=== PATIENT | female | born 1940 | race Caucasian/White ===

== ENCOUNTER → 2017-08-08 | Outpatient (CLI) | payer MEDICARE, OTHER ==
--- NOTE | 2017-08-08 10:53 | WOMENS IMAGING REPORT ---
EXAM DESCRIPTION: BONE DENSITY HIP/SPINE COMPLETED DATE/TIME: 08/08/2017 10:10 am REASON FOR STUDY: OSTEOPROSIS; M81.0 M81.0 AGE-RELATED OSTEOPOROSIS W/O CURRENT PATHOLOGICAL FRAC COMPARISON: 02/12/2013 02/11/2012 10/26/2008 TECHNIQUE: Dual-Energy X-ray Absorptiometry (DEXA) of the AP Spine and Hip. LIMITATIONS: None. FINDINGS: LUMBAR SPINE: The bone mineral density (BMD) measured from L1-L4 in the AP projection correlates with a T-score of -1.6, which is osteopenia as defined by the World Health Organization. HIP: The bone mineral density (BMD) measured in the left hip correlates with a T-score of -1.8 in the femo ral neck, which is osteopenia as defined by the World Health Organization. IMPRESSION: 1. LUMBAR SPINE: Osteopenia 2. HIP: Osteopenia COMMENT: The World Health Organization defines low BMD as follows: T-score: Normal: Greater than -1.0 Osteopenia: Between -1.0 and -2.5 Osteoporosis: Less than -2.5 without fractures Established osteoporosis: Less than -2.5 with fractures In general, you may wish to consider: Diagnosis Treatment Follow-up DEXA Normal BMD Prevention 2-3 years Osteopenia Prevention/Therapy 1-2 years Osteoporosis Therapy Yearly TECHNICAL DOCUMENTATION: JOB ID: [id number]- All Rights Reserved
== END ==
LOC: WI 08:42
PROVIDERS: ATTEND Family Medicine
DX: M81.0 Age-related osteoporosis without current pathological fracture (principal)
CPT/HCPCS: 77080

== ENCOUNTER 2020-10-09 20:58 | Emergency (ER) | payer MEDICARE, OTHER ==
--- NOTE | 2020-10-09 21:30 | ER Document Report ---
ED Medical Screen (RME) - General Chief Complaint: Fall Stated Complaint: FALL-RIGHT WRIST PAIN Time Seen by Provider: 10/09/20 21:27 Primary Care Provider: DEE DEE GARCIA MD [Primary Care Provider] - Follow up as needed Mode of Arrival: Wheelchair Information source: Relative Notes: HPI; 80-year-old female past medical history significant for the dementia presents to the emergency room with her bagknpzr-if-qum and who states she tripped and fell landing on her right forearm. No head trauma head injury. No medications prior to arrival. Patient offers no complaints. PE: Alert oriented to name only. Obvious deformity noted to the right wrist and right forearm. She has a positive right radial pulse. Capillary refill is less than 3 seconds. Lungs: Clear to auscultation without rales, rhonchi, wheezes. Heart: Regular rate rhythm without murmurs, rubs, gallops. I have greeted and performed a rapid initial assessment of this patient. A comprehensive ED assessment and evaluation of the patient, analysis of test results and completion of the medical decision making process will be conducted by additional ED providers. I have specifically instructed the patient or family members with the patient to immediately return to any nursing staff should anything change in the patient's condition or with their chief complaint. TRAVEL OUTSIDE OF THE [place] IN LAST 30 DAYS: No - Related Data Allergies/Adverse Reactions: procainamide HCl [From Procanbid] Allergy (Severe, Verified 07/03/11 07:53) muscle rigidity amoxicillin trihydrate [From Augmentin] Adverse Reaction (Mild, Verified 07/03/11 07:54) rash lecithin [Lecithin] Adverse Reaction (Mild, Verified 07/03/11 07:55) yeast infection Penicillins Adverse Reaction (Mild, Verified 07/03/11 07:55) rash Potassium Clavulanate * [From Augmentin] Adverse Reaction (Mild, Verified 07/03/11 07:54) rash tetracycline [Tetracycline] Adverse Reaction (Mild, Verified 07/03/11 07:54) rash jigna peg Adverse Reaction (Mild, Uncoded 07/03/11 07:54) rash Past Medical History - Past Medical History Cardiac Medical History: Reports: Hx Hypertension - on meds Denies: Hx Coronary Artery Disease, Hx Heart Attack Pulmonary Medical History: Denies: Hx Asthma, Hx Bronchitis, Hx COPD, Hx Pneumonia Neurological Medical History: Denies: Hx Cerebrovascular Accident, Hx Seizures Musculoskeltal Medical History: Denies Hx Arthritis Past Surgical History: Reports: Hx Hysterectomy, Hx Pacemaker - see card copy 2001 - Immunizations Hx Diphtheria, Pertussis, Tetanus Vaccination: Yes Doctor's Discharge - Discharge Referrals: DEE DEE GARCIA MD [Primary Care Provider] - Follow up as needed
--- NOTE | 2020-10-09 22:21 | RADIOLOGY REPORT (SQ) ---
XR FOREARM 2 VIEWS CLINICAL STATEMENT: injury COMPARISON: None FINDINGS: Mildly impacted and comminuted distal radius metaphysis fracture. Mildly impacted distal ulna fracture. Bones are osteopenic. No dislocation. Mild radiocarpal degenerative changes. IMPRESSION: Mildly impacted distal radius and ulna fractures.
--- NOTE | 2020-10-09 22:22 | RADIOLOGY REPORT (SQ) ---
XR WRIST 3 OR MORE VIEWS CLINICAL STATEMENT: injury COMPARISON: None FINDINGS: Distal radius and ulna impacted fractures. No dislocation. Moderate diffuse soft tissue swelling. The carpal bones are otherwise intact. IMPRESSION: Comminuted distal radius minimally impacted distal ulna fracture.
--- NOTE | 2020-10-10 00:55 | ER Document Report ---
ED General - General Chief Complaint: Fall Injury Stated Complaint: FALL-RIGHT WRIST PAIN Time Seen by Provider: 10/09/20 21:27 Primary Care Provider: DEE DEE GARCIA MD [NO LOCAL MD] - Follow up as needed LUZ JEFFERSON JR, DO [ACTIVE PROVISIONAL STAFF] - Follow up as needed Mode of Arrival: Wheelchair TRAVEL OUTSIDE OF THE [place] IN LAST 30 DAYS: No - HPI Notes: Patient is a very pleasant 80-year-old female with a history of dementia who presents to the emergency department for evaluation after a fall. Patient's nblviekw-gd-wnd, who is also one of her caregivers, is primary historian. Evidently she was at home with her . They bumped into each other, she tripped over her slippers, and fell onto her right side. She was initially complaining of pain only in her right wrist, but she did complain of some pain in her right hip. She has been ambulatory, been able to bear weight since then. She did not hit her head. She did not lose consciousness. There is no neck or back pain. - Related Data Allergies/Adverse Reactions: procainamide HCl [From Procanbid] Allergy (Severe, Verified 07/03/11 07:53) muscle rigidity amoxicillin trihydrate [From Augmentin] Adverse Reaction (Mild, Verified 07/03/11 07:54) rash lecithin [Lecithin] Adverse Reaction (Mild, Verified 07/03/11 07:55) yeast infection Penicillins Adverse Reaction (Mild, Verified 07/03/11 07:55) rash Potassium Clavulanate * [From Augmentin] Adverse Reaction (Mild, Verified 07/03/11 07:54) rash tetracycline [Tetracycline] Adverse Reaction (Mild, Verified 07/03/11 07:54) rash jigna peg Adverse Reaction (Mild, Uncoded 07/03/11 07:54) rash Home Medications: Tikosyn, Namenda, calcium and vitamin D, multivitamin, lisinopril, Xarelto, Celexa, Keflex Past Medical History - General Information source: Relative - Social History Smoking Status: Unknown if Ever Smoked Family History: Reviewed & Not Pertinent Patient has homicidal ideation: No - Past Medical History Cardiac Medical History: Reports: Hx Atrial Fibrillation, Hx Hypertension - on meds Denies: Hx Coronary Artery Disease, Hx Heart Attack Pulmonary Medical History: Denies: Hx Asthma, Hx Bronchitis, Hx COPD, Hx Pneumonia Neurological Medical History: Denies: Hx Cerebrovascular Accident, Hx Seizures Musculoskeletal Medical History: Denies Hx Arthritis Past Surgical History: Reports: Hx Hysterectomy, Hx Pacemaker - see card copy 2001 - Immunizations Hx Diphtheria, Pertussis, Tetanus Vaccination: Yes Hx Pneumococcal Vaccination: 09/03/10 Review of Systems - Review of Systems Constitutional: No symptoms reported EENT: No symptoms reported Cardiovascular: No symptoms reported Respiratory: No symptoms reported Gastrointestinal: No symptoms reported Genitourinary: No symptoms reported Musculoskeletal: See HPI Skin: No symptoms reported Neurological/Psychological: No symptoms reported Physical Exam - Vital signs Vitals: Temp Pulse Resp BP Pulse Ox 99.2 F 70 18 145/59 H 98 10/09/20 21:26 10/09/20 21:26 10/09/20 21:26 10/09/20 21:26 10/09/20 21:26 - Notes Notes: Is a very pleasant 80-year-old female, who appears her stated age, no acute distress. Vital signs reviewed, please refer to chart. Head is normocephalic, atraumatic. Pupils equal round, reactive to light. Neck is supple without meningismus. Heart is regular rate and rhythm. Lungs are clear to auscultation bilaterally. Abdomen is soft, nontender, normoactive bowel sounds throughout. Extremities without cyanosis, clubbing. Posterior calves are nontender. Peripheral pulses are equal. Skin is warm and dry. Examination of the right upper extremity yields edema and ecchymosis to the distal forearm. She has full range of motion of the shoulder, elbow, fingers, thumb. Radial pulse 2+, sensation intact, capillary refill is brisk. She is tender over the distal radius and distal ulna. No anatomical snuffbox tenderness noted. Examination of the right lower extremity yields no obvious deformity. No shortening. She is no pain with passive flexion, abduction, abduction, and internal and external rotation of the hip. Neurovascularly intact distally. Patient is awake and alert, pleasantly confused, cooperative with examiner. Course - Re-evaluation Re-evalutation: 10/10/20 00:58 Patient presents emergency department for evaluation. She had imaging is ordered through triage. She does not seem to be in any way uncomfortable. She is on Xarelto so anti-inflammatories are inappropriate. Caregiver is told to administer Tylenol if necessary for pain. Otherwise we will place this broken wrist in a sugar tong splint. We will refer her to orthopedist. Per caregiver the patient has seen an orthopedic surgeon in the past, but she is unsure as to who it was. I will go and give her the name of our on-call surgeon, they are free to follow-up with whomever they like this week. We did talk about the fact that this was a comminuted fracture, and repair may be significantly complex, if pursued. 10/10/20 01:11 Patient neurovascularly intact following splint placement. She will be discharged. - Vital Signs Vital signs: Temp Pulse Resp BP Pulse Ox 99.2 F 70 18 145/59 H 98 10/09/20 21:26 10/09/20 21:26 10/09/20 21:26 10/09/20 21:26 10/09/20 21:26 - Diagnostic Test Radiology reviewed: Image reviewed, Reports reviewed Radiology results interpreted by me: 10/10/20 01:00 Forearm X-Ray 10/09/20 21:30 IMPRESSION: Mildly impacted distal radius and ulna fractures. Wrist X-Ray 10/09/20 21:30 IMPRESSION: Comminuted distal radius minimally impacted distal ulna fracture. Discharge - Discharge Clinical Impression: Closed fracture distal radius and ulna Qualifiers: Encounter type: initial encounter Laterality: right Qualified Code(s): S52.501A - Unspecified fracture of the lower end of right radius, initial encounter for closed fracture Condition: Stable Disposition: HOME, SELF-CARE Instructions: Fractured Radius and Ulna ([facility]) Additional Instructions: Maintain splint, keep it dry. Tylenol as needed for pain. Follow-up with orthopedic surgeon. He can follow-up with someone using prior, or our orthopedic surgeon on-call, listed below. Return the emergency department if she develops worsening or new concerning symptoms of any sort. Referrals: DEE DEE GARCIA MD [NO LOCAL MD] - Follow up as needed LUZ JEFFERSON JR, [ACTIVE PROVISIONAL STAFF] - Follow up as needed
[2020-10-10 01:15] VITALS: BP 162/69
== END 2020-10-10 01:32 | disposition home or self-care (01) ==
LOC: ER 20:58
DX: S52.591A Other fractures of lower end of right radius, initial encounter for closed fracture (principal); S52.691A Other fracture of lower end of right ulna, initial encounter for closed fracture; M25.551 Pain in right hip; W03.XXXA Other fall on same level due to collision with another person, initial encounter; Y92.009 Unspecified place in unspecified non-institutional (private) residence as the place of occurrence of the external cause; F03.90 Unspecified dementia, unspecified severity, without behavioral disturbance, psychotic disturbance, mood disturbance, and anxiety; I48.91 Unspecified atrial fibrillation; I10 Essential (primary) hypertension; Z95.0 Presence of cardiac pacemaker; Z79.899 Other long term (current) drug therapy; Z79.01 Long term (current) use of anticoagulants; Z79.2 Long term (current) use of antibiotics; Z88.8 Allergy status to other drugs, medicaments and biological substances
CPT/HCPCS: 99283

== ENCOUNTER 2020-10-24 15:29 | Emergency (ER) | payer MEDICARE, OTHER ==
[2020-10-24] MEDS ORDERED: NORMAL SALINE 1000 ML 1,000 ML IV ONE (15:49)
--- NOTE | 2020-10-24 15:49 | ER Document Report ---
ED Medical Screen (RME) - General Chief Complaint: Urinary Problem Stated Complaint: URINARY ISSUE Time Seen by Provider: 10/24/20 15:43 Primary Care Provider: JOE MTZ [Primary Care Provider] - Follow up as needed Mode of Arrival: Ambulatory Information source: Patient Notes: 80-year-old female presents to ED for urinary problems. Her urine is brown in color. She was seen by the primary care on Saturday started on Macrobid for UTI. She returned to the primary care today the primary care sent her to the emergency room due to the brown urine. Patient does not complain of pain. Patient does have dementia. She is more confused than her normal. She is here with her sshgxazm-hv-afv caregiver. Objective: There is no blood in urine because I have greeted and performed a rapid initial assessment of this patient. A comprehensive ED assessment and evaluation of the patient, analysis of test results and completion of medical decision making process will be conducted by an additional ED providers. TRAVEL OUTSIDE OF THE [place] IN LAST 30 DAYS: No - Related Data Allergies/Adverse Reactions: procainamide HCl [From Procanbid] Allergy (Severe, Verified 07/03/11 07:53) muscle rigidity amoxicillin trihydrate [From Augmentin] Adverse Reaction (Mild, Verified 07/03/11 07:54) rash lecithin [Lecithin] Adverse Reaction (Mild, Verified 07/03/11 07:55) yeast infection Penicillins Adverse Reaction (Mild, Verified 07/03/11 07:55) rash Potassium Clavulanate * [From Augmentin] Adverse Reaction (Mild, Verified 07/03/11 07:54) rash tetracycline [Tetracycline] Adverse Reaction (Mild, Verified 07/03/11 07:54) rash jigna peg Adverse Reaction (Mild, Uncoded 07/03/11 07:54) rash Past Medical History - Past Medical History Cardiac Medical History: Reports: Hx Atrial Fibrillation, Hx Hypertension - on meds Denies: Hx Coronary Artery Disease, Hx Heart Attack Pulmonary Medical History: Denies: Hx Asthma, Hx Bronchitis, Hx COPD, Hx Pneumonia Neurological Medical History: Denies: Hx Cerebrovascular Accident, Hx Seizures Musculoskeltal Medical History: Denies Hx Arthritis Past Surgical History: Reports: Hx Hysterectomy, Hx Pacemaker - see card copy 2001 - Immunizations Hx Diphtheria, Pertussis, Tetanus Vaccination: Yes Doctor's Discharge - Discharge Referrals: JOE MTZ [Primary Care Provider] - Follow up as needed
[2020-10-24 16:44] LABS: ABSOLUTE BASOPHILS # (AUTO) 0.1 10^3/uL (0.0-0.2); ABSOLUTE EOSINOPHILS # (AUTO) 0.6 10^3/uL (0.0-0.6); ABSOLUTE LYMPHOCYTES (AUTO) 0.9 10^3/uL (0.5-4.7); ABSOLUTE NEUT (AUTO) 6.3 10^3/uL (1.7-8.2); BASOPHILS % (AUTO) 0.8 % (0-2); EOSINOPHILS % (AUTO) 6.3 % (0-6); HEMATOCRIT 36.8 % (36.0-47.0); HEMOGLOBIN 12.5 g/dL (12.0-15.5); MEAN CORPUSCULAR HEMOGLOBIN 31.3 pg (27.0-33.4); MEAN CORPUSCULAR HGB CONC 33.9 g/dL (32.0-36.0); MEAN CORPUSCULAR VOLUME 93 fl (80-97); MONOCYTES % (AUTO) 10.9 % (3-13); PLATELET COUNT 476 10^3/uL (150-450); RED BLOOD COUNT 3.98 10^6/uL (3.72-5.28); RED CELL DISTRIBUTION WIDTH 15.1 % (11.5-14.0); TOTAL CELLS COUNTED % (AUTO) 100 %; WHITE BLOOD COUNT 8.7 10^3/uL (4.0-10.5)
[2020-10-24 17:05] LABS: ALBUMIN 3.7 g/dL (3.5-5.0); ALKALINE PHOSPHATASE 86 U/L (38-126); ASPARTATE AMINO TRANSFERASE 28 U/L (14-36); BILIRUBIN,DIRECT 0.1 mg/dL (0.0-0.4); BILIRUBIN,TOTAL 0.4 mg/dL (0.2-1.3); BLOOD UREA NITROGEN 22 mg/dL (7-20); CALCIUM 9.3 mg/dL (8.4-10.2); CARBON DIOXIDE 34 mmol/L (22-30); CHLORIDE 101 mmol/L (98-107); CREATINE KINASE 50 U/L (30-135); GLUCOSE 91 mg/dL (75-110); POTASSIUM 4.9 mmol/L (3.6-5.0); TOTAL PROTEIN 7.1 g/dL (6.3-8.2)
[2020-10-24 17:11] LABS: ANION GAP 3 (5-19)
[2020-10-24] MEDS ORDERED: CEFTRIAXONE 1 GM/D5W RTU 1 GM/50 ML RTUPB IV ONE (20:40)
--- NOTE | 2020-10-24 20:47 | ER Document Report ---
ED General - General Chief Complaint: Urinary Problem Stated Complaint: URINARY ISSUE Time Seen by Provider: 10/24/20 15:43 Primary Care Provider: JOE MTZ [Primary Care Provider] - Follow up as needed Mode of Arrival: Ambulatory TRAVEL OUTSIDE OF THE [place] IN LAST 30 DAYS: No - HPI Context: This is a 80-year-old female with history of dementia and urinary tract infections presenting to the emergency department with her bytjablp-ki-fmo for evaluation of dark-colored urine. Again patient does have dementia and the nwdprmnr-op-nve who relates most of the history. Gocfolah-jt-htw says that she took the patient to an urgent care about 6 days ago for urinary frequency and was diagnosed with a UTI and started on Macrobid which she finished yesterday today she started having reddish-brown urine. Patient has not complained of pain in bgzghjei-fh-idg took the patient to the urgent care again today and they were referred over to the ED for further evaluation. Dvqjvgpf-ng-plu states that the patient has not had any issues with fever, chills, history of Covid 19 infection, known exposure to persons positive for COVID-19 or persons under in vestigation for COVID-19. Egpelmud-xz-dfc has a picture of today's urine specimen on her phone. The urine sample appears reddish-brown in color. Associated symptoms: Other Exacerbated by: Other Relieved by: Other - Related Data Allergies/Adverse Reactions: procainamide HCl [From Procanbid] Allergy (Severe, Verified 10/24/20 20:41) muscle rigidity amoxicillin trihydrate [From Augmentin] Adverse Reaction (Mild, Verified 10/24/20 20:41) rash lecithin [Lecithin] Adverse Reaction (Mild, Verified 10/24/20 20:41) yeast infection Penicillins Adverse Reaction (Mild, Verified 10/24/20 20:41) rash Potassium Clavulanate * [From Augmentin] Adverse Reaction (Mild, Verified 10/24/20 20:41) rash tetracycline [Tetracycline] Adverse Reaction (Mild, Verified 10/24/20 20:41) rash jigna peg Adverse Reaction (Mild, Uncoded 10/24/20 20:41) rash Past Medical History - General Information source: Relative - Social History Smoking Status: Unknown if Ever Smoked Frequency of alcohol use: None Drug Abuse: None Family History: Reviewed & Not Pertinent - Past Medical History Cardiac Medical History: Reports: Hx Atrial Fibrillation, Hx Hypertension - on meds Denies: Hx Coronary Artery Disease, Hx Heart Attack Pulmonary Medical History: Denies: Hx Asthma, Hx Bronchitis, Hx COPD, Hx Pneumonia Neurological Medical History: Denies: Hx Cerebrovascular Accident, Hx Seizures Musculoskeletal Medical History: Denies Hx Arthritis Past Surgical History: Reports: Hx Hysterectomy, Hx Pacemaker - see card copy 2001 - Immunizations Hx Diphtheria, Pertussis, Tetanus Vaccination: Yes Hx Pneumococcal Vaccination: 09/03/10 Review of Systems - Review of Systems Notes: Review of systems as below unless otherwise stated in HPI. CONSTITUTIONAL [No] fever, [No] chills. EYES [No] eye pain. ENT [No] URI symptoms, [No] sore throat, [No] ear pain. CARDIOVASCULAR [No] chest pain, [No] palpitations, [No] edema. RESPIRATORY [No] Cough, [No] SOB, [No] wheezing. GASTROINTESTINAL [No] abdominal pain, [No] nausea, [No] Diarrhea, [No] Vomiting, [No] constipation, [No] melena, [No] rectal bleeding. GENITOURINARY [No] dysuria, [positive] urinary frequency, [positive] hematuria, [No] urinary urgency, [No] vaginal discharge, [No] vaginal bleeding. MUSCULOSKELETAL [No] Back pain. SKIN [No] Rash. NEUROLOGIC [No] Headache, [No] recent seizures, [No] paralysis,[No] parathesias. ENDOCRINE [No] polyuria. HEMO/LYMPATIC [No] easy brusing PSYCHIATRIC [No] depression. Physical Exam - Vital signs Vitals: Temp Pulse Resp BP Pulse Ox 98.2 F 70 16 120/54 L 96 10/24/20 15:45 10/24/20 15:45 10/24/20 15:45 10/24/20 15:45 10/24/20 15:45 - Notes Notes: CONSTITUTIONAL [Vital signs reviewed, Patient appears comfortable, patient is awake, pleasant and conversive HEAD [Atraumatic, Normocephalic.] EYES [Eyes are normal to inspection, No discharge from eyes, Extraocular muscles intact, Sclera are normal, Conjunctiva are normal.] ENT [External ears normal to inspection, Nose examination normal, Mouth normal to inspection.] NECK [Normal ROM, No jugular venous distention, No meningeal signs, ] RESPIRATORY CHEST [Chest is nontender, Breath sounds normal, No respiratory distress.] CARDIOVASCULAR [RRR, No murmurs, Normal S1 S2, No rub, No gallop.] ABDOMEN [Abdomen is nontender, No pulsatile masses, No other masses, Bowel sounds normal, No distension, No peritoneal signs, No hernias.] BACK [There is no CVA Tenderness, There is no tenderness to palpation, Normal inspection.] UPPER EXTREMITY Right upper extremity is in a sling for support related to a prior injury LOWER EXTREMITY [Inspection normal, No cyanosis, No clubbing, No edema, No calf tenderness, NEURO [No focal motor deficits, No focal sensory deficits, Speech normal.] SKIN [Skin is warm, Skin is dry, Skin is normal color.] PSYCHIATRIC [Normal affect. ] Course - Re-evaluation Re-evalutation: 10/24/20 22:25 Patient is awake and alert and remains pleasant. Patient has received IV Rocephin. Results of ED MSE discussed with patient's lxdwbogp-bv-avw. When asked if all questions were answered and if all concerns related to this visit were addressed yrpvwcsc-ut-fqt answered in the affirmative. Emergency signs and symptoms, reasons to return to the emergency department discussed with uibpkjog-cx-eql. - Vital Signs Vital signs: Temp Pulse Resp BP Pulse Ox 98.4 F 88 16 124/54 L 100 10/24/20 20:37 10/24/20 19:36 10/24/20 19:36 10/24/20 19:36 10/24/20 19:36 - Laboratory Result Diagrams: 10/24/20 16:14 10/24/20 16:14 Laboratory results interpreted by me: 10/24/20 10/24/20 10/24/20 16:14 16:14 20:52 RDW 15.1 H Plt Count 476 H Lymph % (Auto) 10.0 L Eos % (Auto) 6.3 H Carbon Dioxide 34 H Anion Gap 3 L BUN 22 H Urine Protein 30 H Urine Blood LARGE H Ur Leukocyte Esterase TRACE H Urine Ascorbic Acid 40 H Discharge - Discharge Clinical Impression: Hemorrhagic cystitis Condition: Stable Disposition: HOME, SELF-CARE Additional Instructions: Return to the Emergency Department without delay if any worse. You have been diagnosed with a hemorrhagic cystitis. This is a type of bladder or urinary tract infection where the infection is irritating to the lining of the bladder and can cause some fragility to the bladder tissues which can result in bleeding. This is nonlife-threatening bleeding but it can make the urine appear dark red or brown. These symptoms should improve with the use of the ant ibiotics prescribed to you. HOME CARE INSTRUCTIONS & INFORMATION: Thank you for choosing us for your medical needs. We hope you're satisfied with the care you received. After you leave, you must properly care for your problem and, at the same time, observe its progress. Any condition can change. Some illnesses can change rapidly over hours or days. If your condition worsens, return to the Emergency Department or see your physician promptly. ABOUT YOUR X-RAYS AND EKG'S: If you had an EKG or X-rays taken, they have been read by the Emergency Physician. The X-rays and EKG's will also be read by a Radiologist or Phosphatic Fertilizer Supervisor within 24 hours. If discrepancies are noted, you will be notified by telephone. Please be certain the ED has a correct telephone number & address where you can be reached. Also, realize that some fractures or abnormalities do not show up on initial X-rays. If your symptoms continue, see your physician. ABOUT YOUR LABORATORY TEST: If you had laboratory tests, the results have been reviewed by the Emergency Physician. Some test results (for example cultures) may not be available for several days. You will be contacted if any test result shows you need additional treatment. Please be certain the ED has a correct telephone number and address where you can be reached. ABOUT YOUR MEDICATIONS: You will receive instructions on how to take your medi cine on the prescription label you receive. Additional information may be provided by the Pharmacy. If you have questions afterwards, call the ED for clarification or further instructions. Some prescribed medications may cause drowsiness. Do not perform tasks such as driving a car or operating machinery without consulting your Pharmacist. If you feel you need a refill of pain medication, your condition will need re-evaluation. Please do not call for a refill of any medication. ABOUT YOUR SIGNATURE: Signature of this document acknowledges to followin. Understanding that you received emergency treatment and that you may be released before al medical problems are known or treated. Please be certain the ED has a correct phone number & address where you can be reached. 2. Acknowledgement that you will arrange for follow-up care as recommended. 3. Authorization for the Emergency Physician to provide information to your follow-up Physician in order to maximize your care. AT ANY TIME, IF YOUR SYMPTOMS CHANGE SIGNIFICANTLY OR WORSEN OR YOU DEVELOP NEW SYMPTOMS, RETURN TO THE EMERGENCY DEPARTMENT IMMEDIATELY FOR RE-EVALUATION. OUR GOAL IS TO PROVIDE EXCELLENT MEDICAL CARE! WE HOPE THAT WE HAVE MET YOUR EXPECTATIONS DURING YOUR EMERGENCY DEPARTMENT VISIT AND THAT YOU FEEL YOU HAVE RECEIVED EXCELLENT CARE! Urinary Tract Infection Your evaluation indicates that you have a urinary tract infection. This is due to germs growing in the bladder. This is a common problem. This infection usually responds quickly to antibiotics. Your antibiotic should be taken exactly as prescribed. Drink plenty of fluids -- three to four quarts a day. Occasionally, a bladder anesthetic will be prescribed to help stop the feeling of urgency until the antibiotic has a chance to clear the infection. This may cause your urine to be dark orange. Certain urine infections require a culture. If the doctor obtained a culture, the results will be back in two days. You should call to see if a ch jen in treatment is needed. A repeat urinalysis after you finish treatment is often recommended. The physician will let you know if further testing is required. Call the doctor if you develop fever, chills, flank pain, inability to urinate, or blood in the urine. Prescriptions: Cefdinir 300 mg PO BID 10 Days #20 capsule Cefdinir 300 mg PO BID 10 Days #20 capsule Referrals: JOE MTZ [Primary Care Provider] - Follow up as needed
[2020-10-24 21:46] LABS: APPEARANCE,URINE CLOUDY; BILIRUBIN,URINE NEGATIVE (NEGATIVE); COLOR,URINE AMBER; GLUCOSE, URINE NEGATIVE (NEGATIVE); KETONES,URINE NEGATIVE (NEGATIVE); LEUKOCYTE ESTERASE,URINE TRACE (NEGATIVE); NITRITE,URINE NEGATIVE (NEGATIVE); PROTEIN,URINE 30 mg/dL (NEGATIVE); UROBILINOGEN,URINE NEGATIVE mg/dL (<2.0)
[2020-10-24 23:19] VITALS: BP 143/57
== END 2020-10-24 22:45 | disposition home or self-care (01) ==
LOC: ER 15:29
DX: N30.90 Cystitis, unspecified without hematuria (principal); F03.90 Unspecified dementia, unspecified severity, without behavioral disturbance, psychotic disturbance, mood disturbance, and anxiety; Z87.440 Personal history of urinary (tract) infections; I48.91 Unspecified atrial fibrillation; I10 Essential (primary) hypertension
CPT/HCPCS: 99284; 96365; 36415; 87040; 87086; 82550; 85025; 80053; 81001; J0696